=== PATIENT | female | born 1950 | race Caucasian/White ===

== ENCOUNTER 2016-11-03 15:08 | Emergency (ER) | payer OTHER ==
--- NOTE | 2016-11-03 16:10 | ER NURSING DOCUMENTATION ---
Nurse's Notes [facility] Name:Shanice Chaves Age:66 yrs Sex:Female :1950 Arrival Date:11/03/2016 Time:15:08 BedTrauma-C Private MD:Krista Vincent Diagnosis:Palpitations Presentation: 11/03 15:15 Presenting complaint: Patient states: chest palpatations x 1 month. denies pain. denies bw2 SOB. Transition of care: patient was not received from another setting of care. AIR CAT ACTIVATION no. 15:15 Acuity: MILAGROS 2 bw2 15:15 Method Of Arrival: Walk In 2 16:09 Asprin Given n/a. bw2 Triage Assessment: 15:16 General: Appears in no apparent distress, Behavior is appropriate for age. Pain: Denies bw2 pain. Cardiovascular: Reports palpitations. GI: No deficits noted. Historical: - Allergies: No known drug Allergies; - Tetanus: < 10 years. - Ebola Screening: : Patient negative for fever greater than or equal to 101.5 degrees Fahrenheit, and additional compatible Ebola Virus Disease symptoms. Patient denies exposure to infectious person. Patient denies travel to an Ebola-affected area in the 21 days before illness onset. No symptoms or risks identified at this time. . - Immunization history: Flu Vaccine < 1 year. - Social history: Smoking status: Patient states was never smoker of tobacco. Screenin:29 Infectious Disease Risk None. Abuse screen: Denies threats or abuse. Nutritional bw2 screening: No deficits noted. Assessment: 15:28 Pain: Denies pain. Pain does not radiate. Pain began denies pain at this time. bw2 Vital Signs: 15:15 BP 137 / 73 RA Sitting (auto/reg); Pulse 69 LA; Resp 20 S; Temp 98.1(O); Pulse Ox 95% em3 on R/A; Weight 56.7 kg (R); Height 5 ft. 0 in. (152.40 cm) (R); Pain 3/10; 15:58 BP 118 / 64 RA Sitting (auto/reg); Pulse 64 LA; Resp 19; Pulse Ox 92% on R/A; Pain 0/10;em3 15:15 Body Mass Index 24.41 (56.70 kg, 152.40 cm) em3 ED Course: 15:08 EKG done. (by ED staff). Reviewed by Burt Cronin MD. em3 15:15 Patient arrived in ED. ds 15:15 Krista Vincent MD is Private Physician. ds 15:15 Layla Lees is Primary Nurse. bw2 15:16 Triage completed. bw2 15:19 Burt Cronin MD is Attending Physician. tl1 15:24 Inserted peripheral IV: 20 gauge in right antecubital area and blood collected. bw2 15:29 Valuables Remains with patient. Cardiac Monitoring On for Nurse Monitoring only. Pulse bw2 Ox - RN Monitoring Only NIBP On - RN Monitoring Only. 15:57 Krista Vincent MD is Referral Physician. tl1 15:58 Jus Kim MD is Referral Physician. tl1 16:05 Discontinued lock intact, bleeding controlled, pressure dressing applied, No em3 redness/swelling at site. 16:09 Oxygen O2 via none placed. bw2 20:42 EKG attached lb Administered Medications: No medications were administered Outcome: 15:59 Discharge ordered by . tl1 16:08 Discharged to home ambulatory. bw2 16:08 Condition: good 16:08 Discharge Assessment: Patient awake, alert and oriented x 3. No cognitive and/or functional deficits noted. Patient verbalized understanding of disposition instructions. 16:08 Discharge instructions given to patient, Instructed on discharge instructions, follow up and referral plans. Demonstrated understanding of instructions. 16:09 Patient left the ED. 2 06/08 11:32 Discharge F/U Call: Spoke with: patient. other: Name: pt states she is feeling better st with only a few palpitation this AM. Pt is not sure she is going to fallow up as long as things stay under control given that she already knows that she has PVC. pt was advised that if the symptoms get worst that she needed to she Cardiology. Signatures: Julia Peraza, RN CASTRO st ot, [place], Reg Reg Dominic Moody em3 Burt Cronin MD MD tl1 Layla Lees bw2 Susan Monge lb
--- NOTE | 2016-11-05 16:09 | ER PHYSICIAN DOCUMENTATION ---
Physician Documentation [facility] Name:Shanice Chaves Age:66 yrs Sex:Female :1950 Arrival Date:11/03/2016 Time:15:08 BedTrauma-C Private MD:Krista Vincent ED PhysicianRoseanne Burt Disposition: 11/03 17:00 Chart complete. tl1 Disposition: 11/03/16 15:59 Discharged to Home/Self Care. Impression: Palpitations. - Condition is Good. - Discharge Instructions: PALPITATIONS. - Medical Reconciliation form form. - Follow up: Krista Vincent MD; When: 10 - 14 days; Reason: Continuance of care. Follow up: Jus Mcgraw MD; When: 4- 6 days; Reason: Recheck today's complaints, Continuance of care. - Problem is new. - Symptoms have improved. - Notes: CALL THE OFFICE OF DR MCGRAW TOMORROW TO SCHEDULE A HOLTER MONITOR AND FOLLOW UP EXAM. HPI: 11/04 00:29 This 66 yrs old Female presents to ER via Walk In with complaints of tl1 Palpitations. 11/03 17:00 About 10 years she had palpitations a Holter monitor that showed PVCs. She was tl1 asymptomatic from that standpoint until about a month ago when she started noticing similar symptoms again. She says she has very brief episodes that last only a second and which are characterized by a sensation of a skipped beat. She now has up to about 10 of these episodes a day, and she is concerned that they have come back. She has no other complaints. She says when she called Dr Vincent's office today, she was told that their schedule was full and that if she was having palpitations, she should come to the ED. She has no h/o thyroid disease, decongestant or recreational drug use.. Historical: - Allergies: No known drug Allergies; - Tetanus: < 10 years. - Ebola Screening: : Patient negative for fever greater than or equal to 101.5 degrees Fahrenheit, and additional compatible Ebola Virus Disease symptoms. Patient denies exposure to infectious person. Patient denies travel to an Ebola-affected area in the 21 days before illness onset. No symptoms or risks identified at this time. . - Immunization history: Flu Vaccine < 1 year. - Social history: Smoking status: Patient states was never smoker of tobacco. ROS: 17:00 Cardiovascular: Positive for palpitations, Negative for chest pain, edema, orthopnea, tl1 paroxysmal nocturnal dyspnea. 17:00 Respiratory: Negative for cough, dyspnea on exertion, hemoptysis, orthopnea, pleurisy, shortness of breath, sputum production, wheezing. 17:00 Abdomen/GI: Negative for abdominal pain, nausea, vomiting, diarrhea, black/tarry stool, rectal pain, rectal bleeding. 17:00 All other systems are negative. Exam: 17:00 Constitutional: This is a well developed, well nourished patient who is awake, alert, tl1 and in no acute distress. Head/Face: Normocephalic, atraumatic. Eyes: Pupils equal round and reactive to light, extra-ocular motions intact. Lids and lashes normal. Conjunctiva and sclera are non-icteric and not injected. Cornea within normal limits. Periorbital areas with no swelling, redness, or edema. 17:00 Neck: Trachea midline, no thyromegaly or masses palpated, and no cervical tl1 lymphadenopathy. Supple, full range of motion without nuchal rigidity, or vertebral point tenderness. No Meningismus. 17:00 Cardiovascular: Rate: normal, Rhythm: regular, Heart sounds: normal, Edema: is not appreciated, JVD: is not appreciated. 17:00 Respiratory: the patient does not display signs of respiratory distress, Respirations: normal, Breath sounds: are normal. 17:00 Abdomen/GI: Inspection: abdomen appears normal, Palpation: abdomen is soft and non-tender. 17:00 Back: CVA tenderness, is absent. 17:00 Musculoskeletal/extremity: Exam is negative for acute changes. 17:00 Skin: Exam negative for acute changes. 17:00 Neuro: Orientation: is normal, Mentation: is normal, Memory: is normal, Cranial nerves: grossly normal, Motor: moves all fours, Gait: is steady, at a normal pace, without difficulty, appropriate for age. Vital Signs: 15:15 BP 137 / 73 RA Sitting (auto/reg); Pulse 69 LA; Resp 20 S; Temp 98.1(O); Pulse Ox 95% em3 on R/A; Weight 56.7 kg (R); Height 5 ft. 0 in. (152.40 cm) (R); Pain 3/10; 15:58 BP 118 / 64 RA Sitting (auto/reg); Pulse 64 LA; Resp 19; Pulse Ox 92% on R/A; Pain 0/10;em3 15:15 Body Mass Index 24.41 (56.70 kg, 152.40 cm) em3 MDM: 15:10 Differential diagnosis: arrythmia, stress disorder. Data reviewed: vital signs, nurses tl1 notes, EKG, and as a result, I will discharge patient. Test interpretation: by ED physician or midlevel provider: ECG. Counseling: I had a detailed discussion with the patient and/or guardian regarding: the historical points, exam findings, and any diagnostic results supporting the discharge/admit diagnosis, the need for outpatient follow up, for a referral to a specialist, a consumer attorney, to return to the emergency department if symptoms worsen or persist or if there are any questions or concerns that arise at home. ECG:. Special discussion: I reassured her that her history is not concerning for any serious cardiac problem. these symptoms, however are quite concerning to here, and I think she would benefit from another Holter monitor and cardiology evaluation. I do not think there is anything more to be done, here, with a normal ECG and very low risk history.. ED course: She was asymptomatic while she was here and had no dysrhythmias on the monitor.. 15:19 Patient medically screened. tl1 20:39 ECG:. tl1 20:42 EKG attached lb EC:08 Rate is 70 beats/min. Rhythm is regular, Normal Sinus Rhythm. QRS [place] is Normal. CT tl1 interval is normal at 138 msec. QRS interval is normal at 72 msec. QT interval is normal at 368 msec. No Q waves. T waves are Normal. No ST changes noted. Clinical impression: Normal ECG. Interpreted by me. Reviewed by me. Dispensed Medications: No medications were administered Signatures: Burt Cronin MD MD tl1 Layla Lees 2 Susan Monge lb
== END 2016-11-03 16:10 | disposition home or self-care (01) ==
LOC: ER 15:08
DX: R00.2 Palpitations (principal); Z86.79 Personal history of other diseases of the circulatory system
CPT/HCPCS: 93005; 99284